=== PATIENT | female | born 1990 | race Caucasian/White ===

== ENCOUNTER 2016-11-06 13:55 | Observation (INO) | payer BC ==
[2016-11-06] MEDS ORDERED: Sodium Chloride 0.9% 1,000 ML IV STA (14:24)
--- NOTE | 2016-11-06 14:28 | ED PDOC ---
HPI: Female Pain Time Seen by Provider: 11/06/16 14:17 Chief Complaint (Nursing): Female Genitourinary History Per: Patient (Nausea and vomiting x 3 days, unable to tolerate PO fluids. Denies abd pain. Had vaginal spotting last week but none today.) Onset/Duration Of Symptoms: Days (3) Current Symptoms Are (Timing): Still Present Severity: Moderate Pain Scale Rating Of: 0 Quality Of Discomfort: Unable To Describe Associated Symptoms: Nausea, Vomiting. denies: Fever, Diarrhea, Urinary Symptoms Abnormal Vaginal Bleeding: Yes Past Medical History Vital Signs: Last Vital Signs Temp 98 F 11/06/16 14:13 Pulse 66 11/06/16 14:13 Resp 18 11/06/16 14:13 BP 133/70 11/06/16 14:13 Pulse Ox 100 11/06/16 14:13 - Medical History PMH: Seizures Other PMH: Lupus - Family History Family History: States: Unknown Family Hx - Home Medications Home Medications: Ambulatory Orders Medication Instructions Recorded Doxylamine/Pyridoxine HCl (B6) 2 tab PO HS #10 tablet. 11/06/16 [Omar Keating 10-10 mg Tablet] - Allergies Allergies/Adverse Reactions: Allergies Allergy/AdvReac Type Severity Reaction Status Date / Time No Known Allergies Allergy Verified 11/06/16 14:12 Review of Systems ROS Statement: Except As Marked, All Systems Reviewed And Found Negative Gastrointestinal: Positive for: Nausea, Vomiting. Negative for: Abdominal Pain , Diarrhea Genitourinary Female: Positive for: Vaginal Bleeding. Negative for: Dysuria, Frequency Physical Exam - Physical Exam Appears: Positive for: Non-toxic, No Acute Distress ENT: Positive for: Other (Mucous membranes dry) Cardiovascular/Chest: Positive for: Regular Rate, Rhythm Gastrointestinal/Abdominal: Positive for: Bowel Sounds, Soft. Negative for: Tenderness Neurologic/Psych: Positive for: Alert, Oriented - Laboratory Results Result Diagrams: 11/06/16 16:15 11/06/16 16:15 - ECG O2 Sat by Pulse Oximetry: 100 - Progress Re-evaluation Time: 18:46 Condition: Unchanged (Vomited after anti-emetics. Did not tolerate PO challenge) Disposition - Clinical Impression Clinical Impression: Hyperemesis gravidarum - Patient ED Disposition Is Patient to be Admitted: Yes - Disposition Disposition Time: 18:47 Condition: FAIR Prescriptions: Doxylamine/Pyridoxine HCl (B6) [Omar Keating 10-10 mg Tablet] 2 tab PO HS #10 tablet.dr - Pt Status Changed To: Hospital Disposition Of: Observation - POA Present On Arrival: None
--- NOTE | 2016-11-06 15:39 | US ---
Indication: Rule out ectopic Comparison: None available Technique: Ob transvaginal ultrasound Findings: The uterus measures approximately 7.2 x 5.6 x 3.5 cm. Retroverted. Nabothian cyst. There is a single intrauterine fetus present. 3 mm yolk sac. The gestational sac measures 2.1 cm and is compatible with a gestational age of 6 weeks 4 days. The crown-rump length measures 0.9 cm and is compatible with a gestational age of 6 weeks 6 days. Small subchorionic hemorrhage. There is heart motion which measured 132 BPM. The right ovary measures 3.3 x 2.3 x 1.4 cm. The left ovary measures 2.2 x 1.7 x 1.3 cm. Flow was demonstrated to both ovaries. Impression: Live single intrauterine with estimated gestational age 6 weeks 5 days. heart rate 132 bpm. Small subchorionic hemorrhage. Advise an anomaly screen at 16-18 weeks gestational age
[2016-11-06 16:36] LABS: BASO % 0.4 % (0.0-2.0); EOS % 0.2 % (0.0-4.0); HEMATOCRIT 40.2 % (34.0-47.0); LYMPH # 2.5 K/uL (1.0-4.3); LYMPH % 22.9 % (20.0-40.0); MEAN CELL VOLUME 86.3 fl (81.0-99.0); MEAN CORPUSCULAR HEMOGLOBIN 29.4 pg (27.0-31.0); MEAN CORPUSCULAR HGB CONC 34.1 g/dL (33.0-37.0); MEAN PLATELET VOLUME 9.1 fl (7.2-11.7); MONO # 0.5 K/uL (0.0-0.8); MONO % 4.5 % (0.0-10.0); NEUT # 7.9 K/uL (1.8-7.0); RED CELL DISTRIBUTION WIDTH 13.3 % (11.5-14.5); WHITE BLOOD COUNT 10.9 K/uL (4.8-10.8)
[2016-11-06 17:06] LABS: ALB/GLOB RATIO 1.3 (1.0-2.1); ALKALINE PHOSPHATASE 57 U/L (38-126); ALT/SGPT 29 U/L (9-52); AST/SGOT 24 U/L (14-36); BILIRUBIN,TOTAL 1.2 mg/dl (0.2-1.3); BLOOD UREA NITROGEN 8 mg/dl (7-17); CALCIUM 9.5 mg/dL (8.4-10.2); CARBON DIOXIDE 22 mmol/L (22-30); CHLORIDE 102 mmol/L (98-107); GFR AFRICAN-AMERICAN > 60; GLUCOSE,RANDOM 81 mg/dL (65-105); POTASSIUM 3.7 MMOL/L (3.6-5.0); SODIUM 137 mmol/l (132-148)
[2016-11-06 19:26] VITALS: O2SAT 98
[2016-11-06] MEDS: Lactated Ringer's 1,000 ML IV SCH (20:02)
[2016-11-07] MEDS: Lactated Ringer's 1,000 ML IV SCH ×2 (05:51→13:43)
[2016-11-07 08:27] LABS: BASO % 0.4 % (0.0-2.0); EOS # 0.1 K/uL (0.0-0.7); EOS % 0.8 % (0.0-4.0); HEMATOCRIT 35.9 % (34.0-47.0); LYMPH # 1.9 K/uL (1.0-4.3); LYMPH % 23.1 % (20.0-40.0); MEAN CORPUSCULAR HEMOGLOBIN 29.6 pg (27.0-31.0); MEAN CORPUSCULAR HGB CONC 34.4 g/dL (33.0-37.0); MEAN PLATELET VOLUME 9.1 fl (7.2-11.7); MONO # 0.4 K/uL (0.0-0.8); MONO % 5.4 % (0.0-10.0); NEUT # 5.6 K/uL (1.8-7.0); NEUT % 70.3 % (50.0-75.0); NRBC % 0.1 % (0.0-0.0); RED CELL DISTRIBUTION WIDTH 13.2 % (11.5-14.5)
[2016-11-07 08:49] LABS: ALB/GLOB RATIO 1.3 (1.0-2.1); ALKALINE PHOSPHATASE 46 U/L (38-126); ALT/SGPT 28 U/L (9-52); AST/SGOT 20 U/L (14-36); BILIRUBIN,TOTAL 1.5 mg/dl (0.2-1.3); BLOOD UREA NITROGEN 7 mg/dl (7-17); CALCIUM 8.7 mg/dL (8.4-10.2); CARBON DIOXIDE 22 mmol/L (22-30); CHLORIDE 105 mmol/L (98-107); GFR AFRICAN-AMERICAN > 60; GLUCOSE,RANDOM 78 mg/dL (65-105); POTASSIUM 4.3 MMOL/L (3.6-5.0); SODIUM 134 mmol/l (132-148); TOTAL PROTEIN 6.4 G/DL (6.3-8.2)
--- NOTE | 2016-11-07 12:07 | OBPN ---
Datetime: 11/07/2016 08:08 IP Progress Impression Other: hyperemesis gravidarum IP Progress Plan: Continue present management IP Progress Note Comment: hd 1 iup at 6+weeks with hyperemisis feeling better today wishes to improv e diet today will try clear liquids today illw continue meds today Vital Signs Provider: Reviewed; Within Normal Limits
[2016-11-08 00:56] VITALS: RESP 20
[2016-11-08] MEDS: Lactated Ringer's 1,000 ML IV SCH ×2 (02:12→12:59)
--- NOTE | 2016-11-08 10:12 | CP.PCM.HP ---
History of Present Illness - History of Present Illness History of Present Illness: nausea and vomiting Present on Admission - Present on Admission Any Indicators Present on Admission: No - Notes: Notes:: severe nausea and voming Review of Systems - Constitutional Constitutional: As Per HPI - EENT Eyes: As Per HPI Ears: As Per HPI - Breasts Breasts: As Per HPI - Cardiovascular Cardiovascular: As Per HPI - Respiratory Respiratory: As Per HPI - Gastrointestinal Gastrointestinal: As Per HPI - Genitourinary Genitourinary: As Per HPI - Reproductive: Female Reproductive:Female: As Per HPI - Menstruation Menstruation: As Per HPI - Integumentary Integumentary: As Per HPI - Neurological Neurological: As Per HPI - Psychiatric Psychiatric: As Per HPI - Endocrine Endocrine: As Per HPI Past Patient History - Past Medical History & Family History Past Medical History?: No - Past Social History Smoking Status: Never Smoked - CARDIAC Hx Cardiac Disorders: No - PULMONARY Hx Respiratory Disorders: No - NEUROLOGICAL Hx Neurological Disorder: No Hx Seizures: Yes - HEENT Hx HEENT Problems: No - RENAL Hx Chronic Kidney Disease: No - ENDOCRINE/METABOLIC Hx Endocrine Disorders: No Hx Systemic Lupus Erythematosus: Yes - HEMATOLOGICAL/ONCOLOGICAL Hx AIDS: No Hx Human Immunodeficiency Virus (HIV): No Other/Comment: lupus - INTEGUMENTARY Hx Dermatological Problems: No - MUSCULOSKELETAL/RHEUMATOLOGICAL Hx Musculoskeletal Disorders: No Hx Falls: No - GASTROINTESTINAL Hx Gastrointestinal Disorders: No - GENITOURINARY/GYNECOLOGICAL Hx Genitourinary Disorders: No - PSYCHIATRIC Hx Psychophysiologic Disorder: No Hx Substance Use: No - SURGICAL HISTORY Hx Surgeries: No - ANESTHESIA Hx Anesthesia: No Meds Allergies/Adverse Reactions: Allergies Allergy/AdvReac Type Severity Reaction Status Date / Time No Known Allergies Allergy Verified 11/06/16 14:12 Results - Vital Signs Recent Vital Signs: Last Vital Signs Temp 98.6 F 11/08/16 04:00 Pulse 74 11/08/16 04:00 Resp 20 11/08/16 04:00 BP 100/58 L 11/08/16 04:00 Pulse Ox 98 11/06/16 19:25 - Labs Result Diagrams: 11/07/16 08:20 11/07/16 08:20
--- NOTE | 2016-11-08 10:56 | OBPN ---
Datetime: 11/08/2016 09:33 IP Progress Plan: Continue present management IP Progress Note Comment: patient to continue present meds and increase diet if tolerable may discha rge with medication Vital Signs Provider: Reviewed; Within Normal Limits Datetime: 11/07/2016 08:22 Gestation - Est Wks by US: 6+
[2016-11-08 12:55] VITALS: BP 103/54; PULSE 70; TEMP 98.4
--- NOTE | 2016-11-09 08:48 | CP.PCM.DIS ---
Provider - Provider Date of Admission: 11/06/16 18:46 no complaints tolerating diet Attending physician: Peyman Moreno MD Time Spent in preparation of Discharge (in minutes): 20 Hospital Course - Lab Results Lab Results: Most Recent Lab Values WBC 8.0 K/uL (4.8-10.8) 11/07/16 08:20 RBC 4.17 Mil/uL (3.80-5.20) 11/07/16 08:20 Hgb 12.4 g/dL (12.0-16.0) 11/07/16 08:20 Hct 35.9 % (34.0-47.0) 11/07/16 08:20 MCV 86.0 fl (81.0-99.0) 11/07/16 08:20 MCH 29.6 pg (27.0-31.0) 11/07/16 08:20 MCHC 34.4 g/dL (33.0-37.0) 11/07/16 08:20 RDW 13.2 % (11.5-14.5) 11/07/16 08:20 Plt Count 210 K/uL (130-400) 11/07/16 08:20 MPV 9.1 fl (7.2-11.7) 11/07/16 08:20 Neut % (Auto) 70.3 % (50.0-75.0) 11/07/16 08:20 Lymph % (Auto) 23.1 % (20.0-40.0) 11/07/16 08:20 [place] % (Auto) 5.4 % (0.0-10.0) 11/07/16 08:20 Eos % (Auto) 0.8 % (0.0-4.0) 11/07/16 08:20 Baso % (Auto) 0.4 % (0.0-2.0) 11/07/16 08:20 Neut # 5.6 K/uL (1.8-7.0) 11/07/16 08:20 Lymph # 1.9 K/uL (1.0-4.3) 11/07/16 08:20 [place] # 0.4 K/uL (0.0-0.8) 11/07/16 08:20 Eos # 0.1 K/uL (0.0-0.7) 11/07/16 08:20 Baso # 0.0 K/uL (0.0-0.2) 11/07/16 08:20 Sodium 134 mmol/l (132-148) 11/07/16 08:20 Potassium 4.3 MMOL/L (3.6-5.0) 11/07/16 08:20 Chloride 105 mmol/L (98-107) 11/07/16 08:20 Carbon Dioxide 22 mmol/L (22-30) 11/07/16 08:20 Anion Gap 11 (10-20) 11/07/16 08:20 BUN 7 mg/dl (7-17) 11/07/16 08:20 Creatinine 0.7 mg/dL (0.7-1.2) 11/07/16 08:20 Est GFR ( Amer) > 60 11/07/16 08:20 Est GFR (Non-Af Amer) > 60 11/07/16 08:20 Random Glucose 78 mg/dL (65-105) 11/07/16 08:20 Calcium 8.7 mg/dL (8.4-10.2) 11/07/16 08:20 Total Bilirubin 1.5 mg/dl (0.2-1.3) H 11/07/16 08:20 AST 20 U/L (14-36) 11/07/16 08:20 ALT 28 U/L (9-52) 11/07/16 08:20 Alkaline Phosphatase 46 U/L (38-126) 11/07/16 08:20 Total Protein 6.4 G/DL (6.3-8.2) 11/07/16 08:20 Albumin 3.6 g/dL (3.5-5.0) 11/07/16 08:20 Globulin 2.8 gm/dL (2.2-3.9) 11/07/16 08:20 Albumin/Globulin Ratio 1.3 (1.0-2.1) 11/07/16 08:20 Beta HCG, Quant 10778.00 mIU/mL 11/06/16 16:15 Blood Type A POSITIVE 11/06/16 16:15 Antibody Screen Negative 11/06/16 16:15 BBK History Checked No verified bt 11/06/16 16:15 - Hospital Course Hospital Course: uneventful course Discharge Exam - Respiratory Exam Additional comments: improved with meds Discharge Plan - Follow Up Plan Condition: FAIR Disposition: HOME/ ROUTINE Instructions: Hyperemesis Gravidarum (DC) Additional Instructions: dc home today rto 1week call office if any problems
== END 2016-11-08 15:00 | disposition home or self-care (01) ==
LOC: H.ER 13:55 → H.ERHOLD 18:46 → H.OB/GYN 21:20
PROVIDERS: ADMIT Specialist; ATTEND Specialist
DX: O21.0 Mild hyperemesis gravidarum (principal); Z3A.01 Less than 8 weeks gestation of pregnancy; M32.9 Systemic lupus erythematosus, unspecified
CPT/HCPCS: 36415; 76817; 80053; 81025; 84702; 85025; 86850; 86900; 96374; 99285; G0378; J2405; J2765; J7040; J7120

== ENCOUNTER 2017-04-10 13:38 | Emergency (ER) | payer BC, OTHER ==
[2017-04-10 14:16] VITALS: BMI 26.7
[2017-04-10 19:44] VITALS: BP 118/70; PULSE 89; RESP 17; TEMP 97.6; O2SAT 100
== END 2017-04-10 15:23 | disposition home or self-care (01) ==
LOC: H.EROB 13:38 → H.EROB2 13:38
DX: O36.8131 Decreased fetal movements, third trimester, fetus 1 (principal); Z3A.28 28 weeks gestation of pregnancy

== ENCOUNTER 2017-04-29 14:05 | Emergency (ER) | payer OTHER ==
[2017-04-29 14:32] VITALS: BMI 27.1
[2017-04-29] MEDS: Lactated Ringer's 1,000 ML IV SCH ×2 (15:13→16:07)
[2017-04-29 15:33] LABS: URINE BACTERIA RARE (<OCC); URINE BILIRUBIN NEGATIVE (NEGATIVE); URINE BLOOD NEGATIVE (NEGATIVE); URINE COLOR STRAW (YELLOW); URINE GLUCOSE (UA) 50 mg/dL (Normal); URINE KETONE NEGATIVE (NEGATIVE); URINE LEUKOCYTE ESTERASE NEG Leu/uL (Negative); URINE PROTEIN NEGATIVE (NEGATIVE); URINE UROBILINOGEN 0.2-1.0 mg/dL (0.2-1.0); WBC URINE < 1 /hpf (0-5)
[2017-04-29 15:58] LABS: BASO % 0.2 % (0.0-2.0); EOS # 0.1 K/uL (0.0-0.7); EOS % 0.5 % (0.0-4.0); HEMATOCRIT 32.5 % (34.0-47.0); LYMPH # 1.8 K/uL (1.0-4.3); LYMPH % 14.4 % (20.0-40.0); MEAN CELL VOLUME 82.9 fl (81.0-99.0); MEAN CORPUSCULAR HEMOGLOBIN 28.2 pg (27.0-31.0); MEAN PLATELET VOLUME 9.2 fl (7.2-11.7); MONO # 0.7 K/uL (0.0-0.8); MONO % 5.3 % (0.0-10.0); NEUT # 9.8 K/uL (1.8-7.0); NEUT % 79.6 % (50.0-75.0); RED CELL DISTRIBUTION WIDTH 13.5 % (11.5-14.5); WHITE BLOOD COUNT 12.3 K/uL (4.8-10.8)
[2017-04-29 16:12] LABS: ALKALINE PHOSPHATASE 110 U/L (38-126); ALT/SGPT 28 U/L (9-52); AMYLASE 79 U/L (30-110); AST/SGOT 16 U/L (14-36); BILIRUBIN,TOTAL 0.6 mg/dl (0.2-1.3); BLOOD UREA NITROGEN 6 mg/dl (7-17); CARBON DIOXIDE 28 mmol/L (22-30); CHLORIDE 104 mmol/L (98-107); GFR AFRICAN-AMERICAN > 60; GLUCOSE,RANDOM 88 mg/dL (65-105); LIPASE 83 U/L (23-300); SODIUM 139 mmol/l (132-148)
[2017-04-29 21:51] VITALS: BP 120/73; PULSE 100; RESP 16; TEMP 98.6; O2SAT 98
--- NOTE | 2017-04-30 09:12 | OBHP ---
Datetime: 04/29/2017 16:58 IP Adm Impression: , intrauterine IP Chief Complaint Other: Right flank pain IP Admit Plan: Observation/Evaluation Admit Comment, IP Provider: 26 y/o female patient, , IUP@ 31.5, EMILEE 06/26/17 by LMP and U/S comes to the [facility] c/o right flank pain which started last night. pain is 8/10 severity, sharp, constant, ra diating to right ribcage, gets worse with movements. Patient denies any associated symptoms such as f ever, chills, SOB, dysuria, or urinary symptoms. Vomited once but as per patient its not something ne w. - Denies any LOF/BV/CTX. positive FM - care: Dr. Moreno. - PNI: none so far - PNL: no abnormal labs so far as per pt - PMH: Lupus, Seizure (last seizure a year ago, no current medication use) - OBGYN: unremarkable - Allg: none - Meds: PNV - SH: denies alcohol, smoking or drug use - FH: + for Lupus VS: stable, reassuring FHT and NST PE: right CVA tenderness, closed cervix A/P: 26 y/o female patient, , IUP@ 31.5, EMILEE 06/26/17 by LMP and U/S comes to the [facility] c/o right flan k pain which started last night. - CBC - CMP - UA - IVF - Monitor vitals and FHR - reevaluate pt Case discussed with Dr. Engel --- Malinda Salinas, PGY-1 5:11 PM: CBC, CMP and UA back, Unremarkable labs --- Malinda Salinas, PGY 1 OB Hospitalist note: Pt seen and examined by me. Agree with PGY1 note MAHNDO Elevate WBC on CBC - UA neg - surgical consult Pt seen by Dr Moreno. labs rev'd and discharged home Pelvic Type - PN: Adequate Extremities - PN: Normal Abdomen - PN: Normal Back - PN: Normal Breast - PN: Not Done Lungs - PN: Normal Heart - PN: Normal Thyroid - PN: Normal Neurologic - PN: Normal HEENT - PN: Not Done General - PN: Normal FHR - Baseline A Provider: 140 Comments, ACOG Physical Exam: Right CVA tenderness (Annotations: Data stored by CPN on behalf of us er) IP Hx Assessment: The History has been Reviewed and is Current EGA AdmitDate IP: 31.5 Vital Signs Provider: Reviewed IP Chief Complaint: Maternal discomfort NICHD Variability Prov Fetus A: Moderate 6-25bpm NICHD Accel Fetus A IP Provider: 15X15 FHR Category Provider Fetus A: Category I NICHD Decel Fetus A IP Provider: None Dilatation, Provider: 0 Genitourinary Exam: Normal DTRs - PN: Not Done Datetime: 04/10/2017 15:32 Gestation - Est Wks by US: 28.6
--- NOTE | 2017-04-30 09:12 | OBDCSUM ---
Datetime: 04/29/2017 17:11 Discharge Instructions, Provider: Routine instructions given Discharge Comment, Provider: Pt seen by PMD and discharged home Discharge Diagnosis Prov Other: back;flank pain
== END 2017-04-29 17:12 | disposition home or self-care (01) ==
LOC: H.EROB2 14:05
DX: O26.93 Pregnancy related conditions, unspecified, third trimester (principal); R10.2 Pelvic and perineal pain; O47.03 False labor before 37 completed weeks of gestation, third trimester; Z3A.31 31 weeks gestation of pregnancy; Z86.69 Personal history of other diseases of the nervous system and sense organs
CPT/HCPCS: 80053; 81003; 82150; 83690; 85025; 99283; J7120

== ENCOUNTER 2017-06-07 14:32 | Emergency (ER) | payer OTHER ==
[2017-06-07 15:06] VITALS: BMI 28.6
--- NOTE | 2017-06-07 15:45 | OBHP ---
Datetime: 06/07/2017 15:40 IP Adm Impression: Term, intrauterine ; No Active Labor; Intact Membranes IP Admit Plan: Observation/Evaluation Admit Comment, IP Provider: Patient is a 27-year-old 1 para 0 estimated due date 06/26/2017 estimated gestational age 37 weeks 2 days patient presents to labor and delivery complaining of occas ional uterine contraction patient also reports some scant vaginal discharge patient denies any vagina l bleeding she reports good movement care unremarkable Past medical history none Past surgical history none No known drug allergies Social history denies alcohol tobacco use Review of systems patient denies headache chest pain shortness breath palpitations nausea vomiting diarrhea heat or cold intolerance stability musculoskeletal or neurological complaints Vital signs stable afebrile Physical exam see notes Intrauterine at 37 weeks Physiological discharge Vertex presentation, adequate fluid DILIP 10 Sterile speculum exam no pooling noted nitrazine negative NST reactive accelerations no decelerations Patient cleared for discharge Labor precautions provided patient to follow-up with PMD in 1 week Pelvic Type - PN: Adequate Extremities - PN: Normal Abdomen - PN: Normal Back - PN: Normal Breast - PN: Normal Lungs - PN: Normal Heart - PN: Normal Thyroid - PN: Normal Neurologic - PN: Normal HEENT - PN: Normal General - PN: Normal FHR - Baseline A Provider: 145 Gestation - Est Wks by US: 37.0 EGA AdmitDate IP: 37.2 IP Chief Complaint: Suspected ruptured membranes FHR Category Provider Fetus A: Category I NICHD Decel Fetus A IP Provider: None Dilatation, Provider: 0 Effacement, Provider: 0 Station, Provider: -2 Genitourinary Exam: Normal DTRs - PN: Normal
[2017-06-07 19:49] VITALS: BP 129/85; PULSE 89; TEMP 98.6; O2SAT 99
== END 2017-06-07 15:40 | disposition home or self-care (01) ==
LOC: H.EROB2 14:32
DX: O47.1 False labor at or after 37 completed weeks of gestation (principal); O26.93 Pregnancy related conditions, unspecified, third trimester; R10.2 Pelvic and perineal pain; Z3A.37 37 weeks gestation of pregnancy

== ENCOUNTER 2017-06-15 20:21 | Emergency (ER) | payer OTHER ==
[2017-06-15 21:08] VITALS: BMI 29.0
[2017-06-16 01:08] VITALS: BP 125/81; PULSE 95
== END 2017-06-15 21:00 | disposition home or self-care (01) ==
LOC: H.EROB2 20:21
DX: O26.93 Pregnancy related conditions, unspecified, third trimester (principal); R10.2 Pelvic and perineal pain; O47.1 False labor at or after 37 completed weeks of gestation; Z3A.38 38 weeks gestation of pregnancy

== ENCOUNTER 2017-06-25 12:00 | Inpatient (IN) | payer OTHER ==
--- NOTE | 2017-06-25 12:03 | OBHP ---
Datetime: 06/15/2017 20:45 IP Adm Impression: Term, intrauterine IP Admit Plan: Discharge home Admit Comment, IP Provider: 27 y/o F at 38.2 weeks of GA, EMILEE 06/27/17 by LMP and confirmed by 1st trim US, c/o uterine CTX's thatn began at 6:30, 9/10 intensity, was occuring every 5 minutes but now slowing down and improving intensity of pain. No VB or LOF. FM present. Pt denies headache, visu al disturbances, CP, SOB, N/V, urinary complaints or rash. NKDA Meds: PNV PNC Clinic: [facility] with Dr Moreno. PN labs: blood group Apos, Rubella immune, GBS neg, HBsAg neg, HIV neg, RPR neg. PMHx: Lupus and epilepsy. (last seizure 2 years ago) PSHx: denied FHx: NC SHx: No tobacco, alcohol or rec drugs. O: No true contractions appreciated on monitor. FHT reassuring and reactive. A/P: 27 y/o F with IUP at 38.2 weeks GA with CTX's. -Will discharge home. -Labor precautions discussed with pt. Case discussed with Dr Shields, OB transportation supervisor. Vesna PGY-1. Addendum: I Examined Patient up Presentation. No Evidence of Labor at This Time. Both Maternal Well-Being an d Well-Being Reassuring at This Time. Patient Home with Labor Precautions. Discussed Plan with Patient AND Questions Answered. Pelvic Type - PN: Adequate Extremities - PN: Normal Abdomen - PN: Normal Back - PN: Normal Lungs - PN: Normal Heart - PN: Normal Thyroid - PN: Normal Neurologic - PN: Normal HEENT - PN: Normal General - PN: Normal FHR - Baseline A Provider: 125 Membranes, Provider: Intact Gestation - Est Wks by US: 38.2 IP Hx Assessment: The History has been Reviewed and is Current EGA AdmitDate IP: 38.2 Vital Signs Provider: Reviewed IP Chief Complaint: Uterine contractions; Maternal discomfort NICHD Variability Prov Fetus A: Moderate 6-25bpm NICHD Accel Fetus A IP Provider: 15X15 FHR Category Provider Fetus A: Category I Dilatation, Provider: FT Effacement, Provider: thick Station, Provider: high Genitourinary Exam: Normal
[2017-06-25 12:36] VITALS: BMI 29.3
[2017-06-25] MEDS: Lactated Ringer's 1,000 ML IV SCH ×2 (13:00→21:30)
[2017-06-25 14:10] LABS: BASO # 0.1 K/uL (0.0-0.2); BASO % 0.4 % (0.0-2.0); EOS # 0.1 K/uL (0.0-0.7); EOS % 0.6 % (0.0-4.0); HEMOGLOBIN 11.1 g/dL (12.0-16.0); LYMPH # 2.1 K/uL (1.0-4.3); LYMPH % 15.3 % (20.0-40.0); MEAN CORPUSCULAR HEMOGLOBIN 25.5 pg (27.0-31.0); MEAN CORPUSCULAR HGB CONC 32.2 g/dL (33.0-37.0); MEAN PLATELET VOLUME 10.7 fl (7.2-11.7); MONO # 0.6 K/uL (0.0-0.8); MONO % 4.7 % (0.0-10.0); NEUT # 10.8 K/uL (1.8-7.0); RBC 4.35 Mil/uL (3.80-5.20); WHITE BLOOD COUNT 13.6 K/uL (4.8-10.8)
[2017-06-25 14:48] VITALS: O2SAT 99
--- NOTE | 2017-06-25 19:39 | OBADHP ---
Datetime: 06/25/2017 13:23 Admit Comment, IP Provider: Pt is a 27 y/o female G1PO with IUP at 39.5 weeks, EMILEE 06/27/16 c/w LMP and 1st week U/S presents with complaints of loss of mucous plug at 1am and clear fluid leakage. She has also been having mild irregular CTX q 10-15 minutes, 6/10 in intensity. Denies vaginal bleeding. Reports good movement. PNC: Dr. 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 Seen on monday (06/23) and advised to return monday for possible induction of l abor. OBHx: denies PMHx: Epilipsy (last seizure 2 yrs ago), Lupus Surgical Hx: Denies RX: PNV (stopped taking seizure and lupus meds at onset of ) Allergies: NKDA Social: Negative x 3 habits Vitals: Hemodynamically stable, afebrile General: Apepars comfortable, AOx3 Cardiac: RRR, normal S1, S2, no murmurs Lungs: CTABL, no wheezing Abdomen: Gravid, NT Extremities: No pedal edema Speculum: + pooling of fluid, clear Pelvic exam: Cervic FT, 50%, No herpetic lesions seen Assessment: IUP at 39.5wks, rupture of membranes at 1:30am with irregular CTX. Plan: Admit to Labor and Delivery for Induction of labor in the setting of ROM. -Administer Cervidil -Monitor for progression of labor -Continuous Monitoring -Type and Screen -IV fluids Discussed case with OB attending Liang Bermudez, PGY1 Addendum: I saw on exam and patient at presentation. Patient grossly ruptured with fluid seen from cervical os. Cephalic on exam. Plan to admit patient for management of labor and delivery. Plan discussed with patient and all patient questions answered. Both maternal well-being and well-being reassuring at this time. IP Chief Complaint: Uterine contractions; Suspected ruptured membranes EGA AdmitDate IP: 39.6 IP Adm Impression: Term, intrauterine (Annotations: Data stored by CPN on behalf of user) Datetime: 06/25/2017 12:48 Pelvic Type - PN: Adequate Extremities - PN: Normal Abdomen - PN: Normal Back - PN: Normal Breast - PN: Not Done Lungs - PN: Normal Heart - PN: Normal Thyroid - PN: Not Done Neurologic - PN: Normal HEENT - PN: Normal General - PN: Normal Genitourinary Exam: Not Done DTRs - PN: Normal IP Admit Plan: Admit to unit Datetime: 06/15/2017 20:45 FHR - Baseline A Provider: 125 Membranes, Provider: Intact Gestation - Est Wks by US: 38.2 IP Hx Assessment: The History has been Reviewed and is Current Vital Signs Provider: Reviewed NICHD Variability Prov Fetus A: Moderate 6-25bpm NICHD Accel Fetus A IP Provider: 15X15 FHR Category Provider Fetus A: Category I Dilatation, Provider: FT Effacement, Provider: thick Station, Provider: high Datetime: 06/07/2017 15:40 NICHD Decel Fetus A IP Provider: None Datetime: 04/29/2017 16:58 IP Chief Complaint Other: Right flank pain Comments, ACOG Physical Exam: Right CVA tenderness (Annotations: Data stored by CPN on behalf of us er)
[2017-06-25] MEDS ORDERED: Nalbuphine 20 mg/ml Inj (1 ml) IVP PRN (19:48)
[2017-06-26] MEDS: Lactated Ringer's 1,000 ML IV SCH ×2 (05:00→13:00)
[2017-06-26] MEDS ORDERED: Fentanyl/Bupivacaine HCl 250 ML EPI ONE (05:04)
[2017-06-26] MEDS ORDERED: Oxytocin 30 UNITS in Sodium Chloride 0.9% 500 ML IV ONE ×2 (07:57→12:50)
[2017-06-26] MEDS ORDERED: Bupivacaine HCl 0.25% PF (10 ml) Inj ONE (09:51)
[2017-06-26] MEDS ORDERED: Lidocaine 1% Inj (20ml) ONE (11:43)
[2017-06-26] MEDS ORDERED: Oxycodone/Acetaminophen 5/325 mg Tab PO PRN ×2 (13:40)
--- NOTE | 2017-06-26 13:51 | OBDS ---
DELIVERY PERSONNEL Delivery Doctor: Tanner Moreno MD Space Systems Operations Superintendent: Makenzie Youngblood RN Resident: Sunita Martin MD MATERNAL INFORMATION Delivery Anesthesia: Epidural Medications in Delivery: pitocin 30 mu Estimated Blood Loss (ml): 250ml Placenta Cultured: No Maternal Complications: None RN Comments: Atraumatic nsv Delivery of viable babyboy with lusty cry Assigned 9/9 's. Skin to skin initiated immediately Patient toelrated delivery well. LABOR SUMMARY EDC: 06/26/2017 00:00 No. Babies in Womb: 1 Attempted: No Labor Anesthesia: Epidural LABOR INFORMATION Reason for Induction: Not Applicable; Other Reason for Induction Other: post term Onset of Labor: 06/26/2017 07:00 Complete Dilatation: 06/26/2017 11:30 Cervical Ripening Agents: Cervidil (Annotations: Cervidil Removed ) Oxytocin: Induction Group B Beta Strep: N/A Antibiotics # of Doses: 0 Steroids Given: None Reason Steroids Not Administered: Not Applicable Other Reason Not Administered: not required MEMBRANES Membranes Rupture Method: Spontaneous Rupture of Membranes: 06/25/2017 02:00 Length of Rupture (hrs): 34.73 Amniotic Fluid Color: Clear Amniotic Fluid Amount: Scant Amniotic Fluid Odor: None STAGES OF LABOR Stage 1 hrs: 4 Stage 1 min: 30 Stage 2 hrs: 1 Stage 2 min: 14 Stage 3 hrs: 0 Stage 3 min: -44 Total Time in Labor hrs: 5 Total Time in Labor min: 0 VAGINAL DELIVERY Episiotomy: None Laceration Extension: First Degree Laceration Type: Vaginal Other Laceration: Tatyana uretheral laceration Laceration Repair: Yes Laceration Repair Note: repair of bilateral periurethral tear with 2-0 chromic Initial Vag Sponge Count: 5 Final Vag Sponge Count: 5 Initial Vag Sharps Count: 2 Final Vag Sharps Count: 2 Sponge Count Correct: Yes Sharps Count Correct: Yes Count Comment: correct BABY A INFORMATION Delivery Date/Time: 06/26/2017 12:44 Method of Delivery: Vaginal Born in Route : No : N/A Forceps: N/A Vacuum Extraction: N/A Shoulder Dystocia : No SHOULDER DYSTOCIA BABY A Infant Delivery Date/Time: 06/26/2017 12:44 PRESENTATION/POSITION BABY A Presentation: Breech Cephalic Presentation: Vertex Vertex Position: Right Occipital Transverse Breech Presentation: N/A PLACENTA INFORMATION BABY A Placenta Delivery Time : 06/26/2017 12:00 Placenta Method of Delivery: Spontaneous Placenta Status: Delivered SCORES BABY A Heart Rate 1 min: >100 bpm Resp Effort 1 min: Good Cry Reflex Irritability 1 min: Cough or Sneeze or Pulls Away Muscle Tone 1 min: Active Motion Color 1 min: Body [place], Extremities Blue Resuscitation Effort 1 min: N/A SCORE 1 MIN: 9 Heart Rate 5 min: >100 bpm Resp Effort 5 min: Good Cry Reflex Irritability 5 min: Cough or Sneeze or Pulls Away Muscle Tone 5 min: Active Motion Color 5 min: Body [place], Extremities Blue Resuscitation Effort 5 min: N/A SCORE 5 MIN: 9 INFORMATION BABY A Gestational Age at Delivery: 40.0 Gestational Status: Term Infant Outcome : Liveborn Infant Condition : Stable Infant Sex: Male IDENTIFICATION/MEDS BABY A ID Band Number: [id number] ID Band Location: Right Leg; Right Arm WEIGHT/LENGTH BABY A Birthweight (gms): 3090 Infant Weight (lb): 6 Infant Weight (oz): 13 CORD INFORMATION BABY A No. Cord Vessels: 3 Nuchal Cord : N/A Cord Blood Taken: Yes Infant Suction: Mouth; Nose
[2017-06-26] MEDS: Benzocaine/Menthol SPRAY TOP PRN ×2 (17:19→21:23)
[2017-06-27 06:06] LABS: MEAN CELL VOLUME 79.9 fl (81.0-99.0); MEAN CORPUSCULAR HEMOGLOBIN 25.4 pg (27.0-31.0); MEAN CORPUSCULAR HGB CONC 31.7 g/dL (33.0-37.0); RBC 3.14 Mil/uL (3.80-5.20); RED CELL DISTRIBUTION WIDTH 15.8 % (11.5-14.5); WHITE BLOOD COUNT 13.6 K/uL (4.8-10.8)
[2017-06-27] MEDS ORDERED: Influenza Vaccine 18yr & older 0.5 ML/45 MCG SYR IM ONE (06:44)
--- NOTE | 2017-06-27 11:11 | OBPPN ---
Datetime: 06/27/2017 11:05 PP Pain Prov: Within normal limits PP Nausea Prov: Denies PP Flatus Prov: Yes PP BM Prov: No PP Breasts Prov: Normal PP Heart Prov: Normal PP Lungs Prov: Normal PP Abdomen/Uterus Prov: Normal PP Lochia Prov: Normal PP Vulva/Perineum Prov: Normal PP CVA Tenderness Prov: Normal PP Extremities Prov: Normal PP Progress Prov: Normal PP Impression Prov: Normal progression PP Plan Prov: Continue present management PP Progress Note Prov: stable ppd1 no complaints continue present care IP PP Procedures: None Vital Signs Provider PP: Reviewed; Within Normal Limits
--- NOTE | 2017-06-28 08:31 | OBPPN ---
Datetime: 06/28/2017 08:28 PP Pain Prov: Within normal limits PP Nausea Prov: Denies PP Flatus Prov: Yes PP BM Prov: Yes PP Breasts Prov: Normal PP Heart Prov: Normal PP Lungs Prov: Normal PP Abdomen/Uterus Prov: Normal PP Lochia Prov: Normal PP Vulva/Perineum Prov: Normal PP CVA Tenderness Prov: Normal PP Extremities Prov: Normal PP Progress Prov: Normal PP Impression Prov: Normal progression PP Plan Prov: Continue present management PP Progress Note Prov: stable ppd2 continue present care IP PP Procedures: None Vital Signs Provider PP: Reviewed; Within Normal Limits
--- NOTE | 2017-06-28 08:34 | OBDCSUM ---
Datetime: 06/28/2017 08:30 Discharged to, Provider: Home Follow up at, Provider: Disch Instr Activity: Bedrest; May be up to bathroom; May be up for meals; May Shower Disch Instr Diet: Regular Discharge Instructions, Provider: Routine instructions given Discharge Diagnosis, Provider: Term Delivered Discharge Time: 06/28/2017 08:31 Follow up in weeks, Provider: 5-6 weeks- Disch Referrals: None Disch Activity Restrictions: No exercising; No lifting; No driving; Minimize walking; Minimize stair -climbing; No sexual activity; Nothing in vagina - Nye, tampons, douche Discharge Comment, Provider: dhruv home today rto 5-6 weeks call office if any problems
[2017-06-28 18:49] VITALS: BP 125/75; PULSE 95; RESP 20; TEMP 98.6
== END 2017-06-28 13:30 | disposition home or self-care (01) | DRG 775 ==
LOC: H.EROB2 12:00 → H.L&D 12:29 → H.EROB2 13:04 → H.L&D 13:17 → H.OB/GYN 06-26 15:30
PROVIDERS: ADMIT Specialist; ATTEND Specialist
PROC: 4A1HXCZ Monitoring of Products of Conception, Cardiac Rate, External Approach (ICD-10-PCS; 2017-06-25)
PROC: 10E0XZZ Delivery of Products of Conception, External Approach (ICD-10-PCS; principal; 2017-06-26)
PROC: 0HQ9XZZ Repair Perineum Skin, External Approach (ICD-10-PCS; 2017-06-26)
PROC: 3E0234Z Introduction of Serum, Toxoid and Vaccine into Muscle, Percutaneous Approach (ICD-10-PCS; 2017-06-27)
DX: O48.0 Post-term pregnancy (principal); O99.354 Diseases of the nervous system complicating childbirth; G40.909 Epilepsy, unspecified, not intractable, without status epilepticus; O70.0 First degree perineal laceration during delivery; O71.82 Other specified trauma to perineum and vulva; Z3A.40 40 weeks gestation of pregnancy; Z37.0 Single live birth; Z23 Encounter for immunization